=== PATIENT | female | born 1980 | race Two or more races ===

== ENCOUNTER 2016-12-14 19:27 | Emergency (ER) | payer OTHER ==
[~2016-12-14] VITALS: Ht 152.4 cm; Wt 66.7 kg
[2016-12-14 19:41] VITALS: BP 114/77
== END 2016-12-14 19:55 | disposition home or self-care (01) ==
LOC: ER 19:34
DX: H10.89 Other conjunctivitis (principal); H61.23 Impacted cerumen, bilateral
CPT/HCPCS: 99283; A4606; Z7610

== ENCOUNTER 2017-04-18 14:36 | Emergency (ER) | payer OTHER ==
[~2017-04-18] VITALS: Ht 152.4 cm; Wt 62.1 kg
[2017-04-18 14:44] VITALS: BP 119/58
[2017-04-18] MEDS ORDERED: FLUORESCEIN SODIUM OPHTH 1 EA STRIP ONE (14:58)
[2017-04-18] MEDS ORDERED: TETRACAINE HCL/PF 0.5% UD 2 ML BOTTLE ONE (14:59)
[2017-04-18] MEDS ORDERED: TETRACAINE HCL/PF 0.5% UD 2 ML BOTTLE OP ONE (15:00)
[2017-04-18] MEDS ORDERED: FLUORESCEIN SODIUM OPHTH 1 EA STRIP OP ONE (15:00)
== END 2017-04-18 15:13 | disposition home or self-care (01) ==
LOC: ER 14:36
DX: H10.32 Unspecified acute conjunctivitis, left eye (principal); J45.909 Unspecified asthma, uncomplicated; Z88.0 Allergy status to penicillin
CPT/HCPCS: A4606; Z7610

== ENCOUNTER 2017-07-24 08:58 | Emergency (ER) | payer SELFPAY ==
[~2017-07-24] VITALS: Ht 152.4 cm; Wt 63.5 kg
[2017-07-24 08:58] VITALS: BP 110/79
[2017-07-24] MEDS ORDERED: IBUPROFEN 600 MG TABLET PO ONE ×2 (10:30→10:34)
== END 2017-07-24 15:11 | disposition home or self-care (01) ==
LOC: ER 09:02
DX: R07.89 Other chest pain (principal); J06.9 Acute upper respiratory infection, unspecified; J45.909 Unspecified asthma, uncomplicated; F10.10 Alcohol abuse, uncomplicated; Z88.0 Allergy status to penicillin
CPT/HCPCS: 71010; 99283; A4606; Z7610

== ENCOUNTER 2018-03-24 17:59 | Emergency (ER) | payer SELFPAY ==
[~2018-03-24] VITALS: Ht 167.6 cm; Wt 75.7 kg
[2018-03-24 18:13] VITALS: BP 109/74
[2018-03-24] MEDS ORDERED: IBUPROFEN 600 MG TABLET PO ONE ×2 (19:00→19:04)
== END 2018-03-24 19:31 | disposition home or self-care (01) ==
LOC: ER 18:02
DX: R19.7 Diarrhea, unspecified (principal); J02.9 Acute pharyngitis, unspecified; Z88.0 Allergy status to penicillin; F10.10 Alcohol abuse, uncomplicated; J45.909 Unspecified asthma, uncomplicated; Y90.9 Presence of alcohol in blood, level not specified
CPT/HCPCS: 87070; 87880; 99284; A4606; Z7610; 86403-TC

== ENCOUNTER 2018-05-15 06:54 | Emergency (ER) | payer SELFPAY ==
[~2018-05-15] VITALS: Ht 152.4 cm; Wt 68.0 kg
[2018-05-15 06:57] VITALS: BP 122/65
[2018-05-15] MEDS ORDERED: LORAZEPAM 1 MG TABLET ONE (07:01)
== END 2018-05-15 07:15 | disposition home or self-care (01) ==
LOC: ER 06:56
DX: H10.9 Unspecified conjunctivitis (principal); J45.909 Unspecified asthma, uncomplicated; Z88.0 Allergy status to penicillin; Z60.2 Problems related to living alone
CPT/HCPCS: A4606; Z7610

== ENCOUNTER 2018-08-02 11:29 | Emergency (ER) | payer SELFPAY ==
[~2018-08-02] VITALS: Ht 152.4 cm; Wt 76.2 kg
[2018-08-02 11:38] VITALS: BP 114/68
[2018-08-02] MEDS ORDERED: ALBUTEROL FS 2.5 MG/3 ML VIAL.NEB NEB ONE (12:00)
[2018-08-02] MEDS ORDERED: IPRATROPIUM NEB FS 0.5 MG/2.5 ML AMPUL.NEB NEB ONE (12:00)
[2018-08-02] MEDS ORDERED: IPRATROPIUM NEB FS 0.5 MG/2.5 ML AMPUL.NEB ONE (12:05)
[2018-08-02] MEDS ORDERED: ALBUTEROL FS 2.5 MG/3 ML VIAL.NEB ONE (12:05)
[2018-08-02] MEDS ORDERED: predniSONE 20 MG TABLET ONE (12:39)
[2018-08-02] MEDS ORDERED: predniSONE 20 MG TABLET PO ONE (13:00)
== END 2018-08-02 12:45 | disposition home or self-care (01) ==
LOC: ER 11:31
DX: J45.909 Unspecified asthma, uncomplicated (principal); H61.23 Impacted cerumen, bilateral; F10.10 Alcohol abuse, uncomplicated; Y90.9 Presence of alcohol in blood, level not specified; Z88.0 Allergy status to penicillin; Z60.2 Problems related to living alone
CPT/HCPCS: 71045; 94640; 99283; A4606; J7512; Z7610

== ENCOUNTER 2018-10-13 18:35 | Emergency (ER) | payer MEDICAID ==
[~2018-10-13] VITALS: Ht 152.4 cm; Wt 68.0 kg
[2018-10-13 18:35] VITALS: BP 120/83
== END 2018-10-13 19:17 | disposition home or self-care (01) ==
LOC: ER 18:35
DX: J06.9 Acute upper respiratory infection, unspecified (principal); J45.909 Unspecified asthma, uncomplicated; F10.10 Alcohol abuse, uncomplicated; Y90.9 Presence of alcohol in blood, level not specified; Z88.0 Allergy status to penicillin; Z60.2 Problems related to living alone
CPT/HCPCS: 99282; A4606

== ENCOUNTER 2018-12-30 17:33 | Emergency (ER) | payer SELFPAY ==
[~2018-12-30] VITALS: Ht 152.4 cm; Wt 68.0 kg
--- NOTE | 2018-12-30 18:15 | NUR ---
PT C/O COUGH WITH CLEAR MUCOUS AND CHILLS X3 DAYS. PT DENIES SICK CONTACTS. ABDOMEN SOFT AND NONDISTENDED. BOWEL SOUNDS PRESENT IN ALL 4 QUADRANTS. AAOX4. BREATHS EVEN AND UNLABORED. O2 SAT 98% ON RA. LUNGS CTA. SAFETY PRECAUTIONS IN PLACE. WILL CONTINUE TO MONITOR. PENDING EVAL AND ORDERS.
--- NOTE | 2018-12-30 18:45 | NUR ---
PT VERBALIZED UNDERSTANDING OF DISCHARGE AND RX INSTRUCTIONS. AAOX4. BREATHS EVEN AND UNLABORED. ARM BAND REMOVED. ALL QUESTIONS ANSWERED. BELONGINGS WITH PT.
[2018-12-30 18:50] VITALS: BP 121/74
== END 2018-12-30 18:53 | disposition home or self-care (01) ==
LOC: ER 17:33
DX: J06.9 Acute upper respiratory infection, unspecified (principal); J45.909 Unspecified asthma, uncomplicated; Z88.0 Allergy status to penicillin; Z60.2 Problems related to living alone

== ENCOUNTER → 2019-03-25 | Emergency (ER) | payer SELFPAY ==
[~2019-03-25] VITALS: Ht 165.1 cm; Wt 69.4 kg
[2019-03-25 16:31] VITALS: BP 116/89
== END | disposition home or self-care (01) ==
LOC: ER 16:29
DX: J02.8 Acute pharyngitis due to other specified organisms (principal); B97.89 Other viral agents as the cause of diseases classified elsewhere; J45.909 Unspecified asthma, uncomplicated; F10.10 Alcohol abuse, uncomplicated; Y90.9 Presence of alcohol in blood, level not specified; Z88.0 Allergy status to penicillin; Z60.2 Problems related to living alone
CPT/HCPCS: 86403-TC; 87070-TC

== ENCOUNTER 2019-05-01 12:37 | Emergency (ER) | payer SELFPAY ==
[~2019-05-01] VITALS: Ht 152.4 cm; Wt 69.9 kg
[2019-05-01 12:41] VITALS: BP 118/77
--- NOTE | 2019-05-01 13:00 | NUR ---
Patient discharged to home in stable condition. Written and verbal after care instructions given. Patient verbalizes understanding of instruction. Prescription given to patient.
== END 2019-05-01 13:00 | disposition home or self-care (01) ==
LOC: ER 12:40
DX: J04.0 Acute laryngitis (principal); J45.909 Unspecified asthma, uncomplicated; F10.10 Alcohol abuse, uncomplicated; Y90.9 Presence of alcohol in blood, level not specified; Z60.2 Problems related to living alone; Z88.0 Allergy status to penicillin

== ENCOUNTER 2019-07-16 11:32 | Emergency (ER) | payer SELFPAY ==
[~2019-07-16] VITALS: Ht 152.4 cm; Wt 75.3 kg
--- NOTE | 2019-07-16 11:54 | NUR ---
C/O "SHARP ABDOMINAL PAIN, +NAUSEA/VOMITING/DIARRHEA X 2 DAYS", pt awake, alert, -sob, nad notd, vss ,pending md antonio
[2019-07-16] MEDS ORDERED: IV NS 0.9% 1,000 ML BAG IV ONE (12:00)
[2019-07-16] MEDS ORDERED: ONDANSETRON HCL/PF 4 MG/2 ML VIAL IVP ONE (12:00)
[2019-07-16 12:06] LABS: BASOPHILS % (AUTO) 0.3 % (0.0-2.0); EOSINOPHILS % (AUTO) 2.5 % (0.0-6.0); HEMATOCRIT 38 % (33-45); HEMOGLOBIN 12.4 g/dL (11.5-14.8); LYMPHOCYTES % (AUTO) 17.2 % (20.0-44.0); MEAN CORPUSCULAR HGB CONC 32 g/dl (31.0-36.0); MEAN CORPUSCULAR VOLUME 84 fL (82-100); MONOCYTES # (AUTO) 0.4 /CMM (0.1-1.30); MONOCYTES % (AUTO) 7.5 % (2.0-12.0); NEUTROPHILS # (AUTO) 4.3 /CMM (1.8-8.9); NEUTROPHILS % (AUTO) 72.5 % (43.0-81.0); PLATELET COUNT (AUTO) 228 /CMM (150-450); RED BLOOD CELL COUNT(AUTO) 4.56 MIL/uL (4.0-5.2); WHITE BLOOD COUNT (AUTO) 5.9 K/uL (4.3-11.0)
[2019-07-16 12:14] LABS: CALCIUM, SERUM 9.1 mg/dL (8.5-10.1); CREATININE 0.6 mg/dL (0.6-1.3); POTASSIUM 3.5 mmol/L (3.5-5.1)
[2019-07-16] MEDS ORDERED: ONDANSETRON HCL/PF 4 MG/2 ML VIAL ONE ×2 (12:14→13:21)
[2019-07-16 12:20] LABS: ALBUMIN 3.4 g/dL (3.4-5.0); BILIRUBIN,DIRECT 0.1 mg/dL (0.0-0.2); BILIRUBIN,TOTAL 0.5 mg/dL (0.2-1.0); TOTAL PROTEIN, SERUM 7.3 g/dL (6.4-8.2)
[2019-07-16] MEDS ORDERED: ONDANSETRON HCL/PF - ER 4 MG/2 ML VIAL IV ONE (13:30)
[2019-07-16 14:09] LABS: APPEARANCE,URINE Clear (CLEAR); BILIRUBIN,URINE SMALL (NEGATIVE); BLOOD, URINE Moderate Ery/uL (NEGATIVE); COLOR,URINE Yellow (YELLOW); KETONES,URINE Negative (NEGATIVE); LEUKOCYTE ESTERASE ,URINE Negative (NEGATIVE); NITRITE, URINE Negative (NEGATIVE); PH,URINE 5.5 (5.0-8.0); PROTEIN,URINE Negative (NEGATIVE); UGLUCOSE Negative (NEGATIVE); UROBILINOGEN,URINE 0.2 EU/dL (0.2)
[2019-07-16 14:18] LABS: BACTERIA,URINE Rare /HPF (None Seen); SQUAMOUS EPITHELIAL CELL,UR Few /HPF (None Seen); WBC,URINE 0-2 /HPF (0-3)
--- NOTE | 2019-07-16 14:32 | NUR ---
Patient discharged to home in stable condition. Written and verbal after care instructions given. Patient verbalizes understanding of instruction. IV removed. Catheter intact and site benign. Pressure and 4x4 applied to site. No bleeding noted.
[2019-07-16 15:04] VITALS: BP 129/75
== END 2019-07-16 14:32 | disposition home or self-care (01) ==
LOC: ER 11:36
DX: R11.0 Nausea (principal); J45.909 Unspecified asthma, uncomplicated; F10.10 Alcohol abuse, uncomplicated; Y90.9 Presence of alcohol in blood, level not specified; Z60.2 Problems related to living alone; Z88.0 Allergy status to penicillin
CPT/HCPCS: 36415; 80048; 80076; 81001; 83690; 84703; 85025; 93005; 96374; 96376; 99284; J2405 ×2; J7030; 81000-TC

== ENCOUNTER 2019-08-31 07:19 | Emergency (ER) | payer OTHER ==
[~2019-08-31] VITALS: Ht 152.4 cm; Wt 68.0 kg
[2019-08-31 07:25] VITALS: BP 121/84
[2019-08-31] MEDS ORDERED: IBUPROFEN 600 MG TABLET PO ONE ×2 (08:00→08:01)
== END 2019-08-31 08:05 | disposition home or self-care (01) ==
LOC: ER 07:23
DX: T20.17XA Burn of first degree of neck, initial encounter (principal); T21.11XA Burn of first degree of chest wall, initial encounter; J45.909 Unspecified asthma, uncomplicated; F10.10 Alcohol abuse, uncomplicated; Z88.0 Allergy status to penicillin; Z60.2 Problems related to living alone; Y90.9 Presence of alcohol in blood, level not specified; X12.XXXA Contact with other hot fluids, initial encounter; Y93.89 Activity, other specified; Y92.89 Other specified places as the place of occurrence of the external cause; Y99.8 Other external cause status

== ENCOUNTER 2021-02-28 18:55 | Emergency (ER) | payer SELFPAY ==
[~2021-02-28] VITALS: Ht 154.9 cm; Wt 77.1 kg
[2021-02-28] MEDS ORDERED: ACETAMINOPHEN ES 500 MG TABLET ONE (20:32)
[2021-02-28] MEDS ORDERED: DEXAMETHASONE 4 MG TABLET ONE (20:33)
[2021-02-28] MEDS: DEXAMETHASONE 1 MG TABLET PO ONE (20:38)
[2021-02-28] MEDS: ACETAMINOPHEN ES 500 MG TABLET PO ONE (20:38)
[2021-02-28] MEDS ORDERED: DEXA4TAB PO (20:49)
[2021-02-28] MEDS ORDERED: AZIT250T PO (20:49)
--- NOTE | 2021-02-28 21:15 | NUR ---
PT OK TO DISCHARGE PER DR RAY. Patient discharged to home in stable condition. Written and verbal after care instructions given. Patient verbalizes understanding of instruction.Patient is awake and alert to self, day, and place. PT ambulatory with a steady gait
[2021-02-28 21:16] VITALS: BP 115/79
== END 2021-02-28 21:16 | disposition home or self-care (01) ==
LOC: ER 19:01
DX: U07.1 COVID-19 (principal); R94.31 Abnormal electrocardiogram [ECG] [EKG]; J45.909 Unspecified asthma, uncomplicated; Z88.0 Allergy status to penicillin; Z60.2 Problems related to living alone
CPT/HCPCS: 71045; 93005; 99283; J8540

== ENCOUNTER 2022-02-23 09:47 | Emergency (ER) | payer SELFPAY ==
[~2022-02-23] VITALS: Ht 152.4 cm; Wt 68.0 kg
[~2022-02-23 09:47] MED LIST: AZIT250T PO; DEXA4TAB PO
--- NOTE | 2022-02-23 09:55 | NUR ---
BIBS WITH LASH OF LOWER BILATERAL BREAST X1WEEK. STATED SHE USED [employer]TIF[employer] CREAMS OVER THE COUNTER AND HAD NO RELIEF AND THAT THE RASH AT TIME ITCHES. VITALS ARE WITHIN NORMAL LIMITS.
--- NOTE | 2022-02-23 10:00 | NUR ---
DR BOCANEGRA AT BEDSIDE ACCOMPANIED BY FEMALE RN
--- NOTE | 2022-02-23 10:00 | NUR ---
DR BOCANEGRA AT BEDSIDE FOR EVAL
[2022-02-23] MEDS ORDERED: CLOT15CR5 TP (10:12)
[2022-02-23] MEDS ORDERED: FLUCONAZOLE (100 MG) 100 MG TABLET ONE (10:14)
--- NOTE | 2022-02-23 10:18 | NUR ---
Patient discharged to home in stable condition. Written and verbal after care instructions given. Patient verbalizes understanding of instruction.
[2022-02-23 10:19] VITALS: BP 122/77
[2022-02-23] MEDS ORDERED: FLUCONAZOLE (100 MG) 100 MG TABLET PO ONE (10:30)
== END 2022-02-23 10:19 | disposition home or self-care (01) ==
LOC: ER 09:53
DX: R21 Rash and other nonspecific skin eruption (principal); J45.909 Unspecified asthma, uncomplicated; Z88.0 Allergy status to penicillin; Z60.2 Problems related to living alone

== ENCOUNTER 2023-11-22 06:56 | Emergency (ER) | payer OTHER ==
[~2023-11-22] VITALS: Ht 157.5 cm; Wt 77.1 kg
[~2023-11-22 06:56] MED LIST changes: +CLOT15CR5 TP
[2023-11-22 07:29] VITALS: BP 134/88; TEMP 97.9; O2SAT 99
== END 2023-11-22 10:00 ==
LOC: ER 06:56
DX: T76.21XA Adult sexual abuse, suspected, initial encounter (principal); J45.909 Unspecified asthma, uncomplicated; F10.10 Alcohol abuse, uncomplicated; Z88.0 Allergy status to penicillin; Z60.2 Problems related to living alone; Y90.9 Presence of alcohol in blood, level not specified

== ENCOUNTER 2024-08-09 17:39 | Emergency (ER) | payer OTHER ==
[~2024-08-09] VITALS: Ht 154.9 cm; Wt 68.0 kg
[2024-08-10 06:00] VITALS: BP 126/71; TEMP 98; O2SAT 99
== END 2024-08-09 19:15 | disposition home or self-care (01) ==
LOC: ER 17:45
DX: M25.522 Pain in left elbow (principal); M25.532 Pain in left wrist; J45.909 Unspecified asthma, uncomplicated; Z79.52 Long term (current) use of systemic steroids; Z88.0 Allergy status to penicillin; Z60.2 Problems related to living alone
CPT/HCPCS: 73080-TC; 73110